=== PATIENT | female | born 1980 | race Asian ===

== ENCOUNTER → 2020-02-28 | Outpatient (CLI) | payer BC | LOC: RAD 16:27 | DX: M25.532 Pain in left wrist (principal) ==

== ENCOUNTER 2020-05-25 15:30 | Outpatient (RCR) | payer OTHER | END 2020-05-25 16:00 | disposition home or self-care (01) | LOC: OT 15:30 | DX: M65.4 Radial styloid tenosynovitis [de Quervain] (principal) ==

== ENCOUNTER → 2021-08-05 | Outpatient (CLI) | payer BC | LOC: LAB 15:30 | DX: Z20.822 Contact with and (suspected) exposure to COVID-19 (principal) ==